=== PATIENT | female | born 1990 | race Caucasian/White ===

== ENCOUNTER 2018-10-18 05:09 | Emergency (ER) | payer OTHER ==
[~2018-10-18] VITALS: Ht 160 cm; Wt 71.7 kg
== END 2018-10-18 11:20 | disposition home or self-care (01) ==
LOC: ER 05:09
DX: O26.891 Other specified pregnancy related conditions, first trimester (principal); R10.2 Pelvic and perineal pain; R06.02 Shortness of breath; Z34.81 Encounter for supervision of other normal pregnancy, first trimester

== ENCOUNTER 2018-11-15 06:26 | Emergency (ER) | payer OTHER ==
[~2018-11-15] VITALS: Ht 160 cm; Wt 70.8 kg
[2018-11-15] MEDS ORDERED: PEPCID20 MG PO (11:38)
== END 2018-11-15 13:01 | disposition home or self-care (01) ==
LOC: ER 06:26
DX: K29.60 Other gastritis without bleeding (principal)

== ENCOUNTER 2018-12-10 20:47 | Emergency (ER) | payer OTHER ==
[~2018-12-10] VITALS: Ht 152.4 cm; Wt 71.7 kg
[~2018-12-10 20:47] MED LIST: PEPCID20 MG PO
[2018-12-10] MEDS ORDERED: [UNRECOGNIZED DRUG - OTHER] (21:21)
[2018-12-11] MEDS ORDERED: ZOFRAN ODT4 MG PO (03:20)
== END 2018-12-11 03:28 | disposition home or self-care (01) ==
LOC: ER 20:47
DX: O26.891 Other specified pregnancy related conditions, first trimester (principal); K52.9 Noninfective gastroenteritis and colitis, unspecified; Z34.82 Encounter for supervision of other normal pregnancy, second trimester

== ENCOUNTER 2019-02-27 10:45 | Outpatient (CLI) | payer OTHER ==
[~2019-02-27 10:45] MED LIST changes: +ZOFRAN ODT4 MG PO; +[UNRECOGNIZED DRUG - OTHER]
== END 2019-02-28 14:01 | disposition home or self-care (01) ==
LOC: OBS/DEL 10:45
DX: O26.893 Other specified pregnancy related conditions, third trimester (principal); E16.1 Other hypoglycemia; Z34.83 Encounter for supervision of other normal pregnancy, third trimester

== ENCOUNTER 2019-04-30 11:45 | Outpatient (CLI) | payer OTHER | END 2019-04-30 13:52 | disposition home or self-care (01) | LOC: NST 11:45 | DX: Z34.83 Encounter for supervision of other normal pregnancy, third trimester (principal) ==